=== PATIENT | female | born 1990 | race Caucasian/White ===

== ENCOUNTER 2017-02-17 11:17 | Emergency (ER) | payer OTHER ==
[2017-02-17 11:38] VITALS: BP 134/91; PULSE 72; RESP 18; TEMP 99.2
[2017-02-17] MEDS ORDERED: HYDROcodone/APAP 5-325MG 1 EACH TAB PO STA (12:18)
[2017-02-17] MEDS ORDERED: KETOROLAC 60 MG/2 ML VIAL IM STA (12:18)
--- NOTE | 2017-02-17 12:22 | ED ---
General Adult HPI - General Chief complaint: Back Pain/Injury Stated complaint: hip pain Time Seen by Provider: 02/17/17 12:03 Source: patient, RN notes reviewed Mode of arrival: ambulatory Limitations: no limitations - History of Present Illness Initial comments: Patient is a 26-year-old female presents to the emergency room for reevaluation of right hip pain. Patient states her right hip is bothering her for the past 2 weeks. Patient states the pain increases when she walks or moves. Patient states the pain starts the anterior portion her hip and radiates to the posterior portion of her hip into the right side of her low back. Patient denies recent falls or trauma. Patient denies recent injury to her hip. Patient states when taking 800 mg ibuprofen with no relief of symptoms. Patient states pain has been worsening throughout the past few days. Patient thought she should be evaluated today. Patient denies following up with primary care provider. Patient symptoms or tingling going down her legs. Patient denies saddle anesthesia. Patient denies fecal or urinary incontinence. Patient denies swelling, warmth or tenderness by palpating over the area. - Related Data Previous Rx's Medication Instructions Recorded HYDROcodone/APAP 5-325MG [[place] 1 tab PO Q6HR PRN #12 tab 02/17/17 5-325] Ibuprofen [Motrin] 800 mg PO Q6HR PRN #20 tab 02/17/17 Allergies Allergy/AdvReac Type Severity Reaction Status Date / Time sulfamethoxazole AdvReac Unknown Verified 02/17/17 11:39 [From Bactrim] trimethoprim [From Bactrim] AdvReac Unknown Verified 02/17/17 11:39 Review of Systems ROS Statement: Those systems with pertinent positive or pertinent negative responses have been documented in the HPI. ROS Other: All systems not noted in ROS Statement are negative. Past Medical History Past Medical History: No Reported History History of Any Multi-Drug Resistant Organisms: None Reported Past Surgical History: Section Additional Past Surgical History / Comment(s): PIH Past Psychological History: No Psychological Hx Reported Smoking Status: Never smoker Past Alcohol Use History: Occasional Past Drug Use History: None Reported General Exam - General Exam Comments Initial Comments: Laying in exam room, no acute distress. Limitations: no limitations General appearance: alert, in no apparent distress Head exam: Present: atraumatic, normocephalic, normal inspection Eye exam: Present: normal appearance ENT exam: Present: normal exam Neck exam: Present: normal inspection Respiratory exam: Absent: respiratory distress Right Hip exam: Present: normal inspection, full ROM. Absent: tenderness, swelling Upper Leg exam: Present: normal inspection Knee exam: Present: normal inspection Lower Leg exam: Present: normal inspection Neurovascular tendon exam: Present: no vascular compromise. Absent: pulse deficit (2+ dorsal pedal and posterior tibial pulses), abnormal cap refill ( Capillary refill less than 2 seconds) Back exam: Present: normal inspection Neurological exam: Present: alert, oriented X3, CN II-XII intact, normal gait Psychiatric exam: Present: normal affect, normal mood Skin exam: Present: warm, dry, intact, normal color. Absent: rash Course Vital Signs 02/17/17 11:34 Temperature 99.2 F Pulse Rate 72 Respiratory 18 Rate Blood Pressure 134/91 O2 Sat by Pulse 100 Oximetry Medical Decision Making - Medical Decision Making Patient is a 26-year-old female presents to the emergency room for evaluation of right hip pain. No signs of erythema or warmth at the hip joint. Patient has no pain on palpation. X-ray shows no acute fractures or dislocations. Advised patient to follow-up with primary care provider for further evaluation. Patient was sent home with pain medications. Patient states she understands everything that was discussed with her. Return parameters discussed. Case discussed with Dr. Hendrix. - Radiology Data Radiology results: report reviewed, image reviewed Disposition Clinical Impression: Arthralgia of right hip Disposition: HOME SELF-CARE Condition: Good Instructions: Arthralgia (ED), Hip Pain (ED) Additional Instructions: Take ibuprofen as needed for pain. Take [place] as needed for severe pain. Please follow up with primary care provider for further evaluation. If any new symptom arises or symptoms worsen, return to ER as soon as possible. Prescriptions: HYDROcodone/APAP 5-325MG [[place] 5-325] 1 tab PO Q6HR PRN #12 tab PRN Reason: Pain Ibuprofen [Motrin] 800 mg PO Q6HR PRN #20 tab PRN Reason: Pain Referrals: None,Stated [Primary Care Provider] - 1-2 days Time of Disposition: 12:47
--- NOTE | 2017-02-17 12:36 | XR ---
EXAMINATION TYPE: XR Hip Complete RT DATE OF EXAM: 02/17/2017 12:32 PM COMPARISON: NONE HISTORY: Pain TECHNIQUE: 2 view right hip FINDINGS: Femoral head articulates with the acetabulum. Joint spaces preserved. No acute fractures ar e evident. Soft tissues are normal. IMPRESSION: 1. Normal 2 view right hip
== END 2017-02-17 13:06 | disposition home or self-care (01) ==
LOC: EC 11:17
DX: M25.551 Pain in right hip (principal); Z88.2 Allergy status to sulfonamides
CPT/HCPCS: 99284; 96372; 73502; J1885

== ENCOUNTER 2018-07-10 09:17 | Emergency (ER) | payer OTHER ==
[2018-07-10 09:24] VITALS: TEMP 98.4
[2018-07-10] MEDS ORDERED: KETOROLAC 60 MG/2 ML VIAL IM STA (10:18)
[2018-07-10] MEDS ORDERED: LIDOCAINE 5% PATCH TOPICAL STA (10:18)
--- NOTE | 2018-07-10 10:29 | ED ---
General Adult HPI - General Chief complaint: Back Pain/Injury Stated complaint: BACK PAIN Time Seen by Provider: 07/10/18 10:09 Source: patient, RN notes reviewed Mode of arrival: ambulatory Limitations: no limitations - History of Present Illness Initial comments: Patient's 27-year-old female presented to the emergency room today with a chief complaint of increased lower back pain. Patient does admit that she was moving a dresser 5 days ago. She states that she's had increased lower back pain since. She does admit that there is some radiation into the left buttocks. Patient denies any bowel or bladder contents to touch. Denies any saddle anesthesia. Patient states that she's been trying ibuprofen with some relief the symptoms. Patient states pain is worse with movements. She denies any other complaints. Patient denies any recent fever, chills, shortness of breath, chest pain, abdominal pain, nausea or vomiting, numbness or tingling, dysuria or hematuria, constipation or diarrhea, headaches or visual changes, or any other complaints. - Related Data Previous Rx's Medication Instructions Recorded HYDROcodone/APAP 5-325MG [[place] 1 tab PO Q6HR PRN #12 tab 02/17/17 5-325] Ibuprofen [Motrin] 800 mg PO Q6HR PRN #20 tab 02/17/17 Cyclobenzaprine [Flexeril] 10 mg PO TID #20 tab 07/10/18 Ibuprofen [Motrin] 600 mg PO Q6HR PRN #40 day 07/10/18 Lidocaine [Lidoderm 5% Patch] 1 patch TRANSDERM DAILY #7 patch 07/10/18 Allergies Allergy/AdvReac Type Severity Reaction Status Date / Time sulfamethoxazole AdvReac Unknown Verified 07/10/18 09:21 [From Bactrim] trimethoprim [From Bactrim] AdvReac Unknown Verified 07/10/18 09:21 Review of Systems ROS Statement: Those systems with pertinent positive or pertinent negative responses have been documented in the HPI. ROS Other: All systems not noted in ROS Statement are negative. Past Medical History Past Medical History: No Reported History History of Any Multi-Drug Resistant Organisms: None Reported Past Surgical History: Section Additional Past Surgical History / Comment(s): PIH, oral Past Psychological History: No Psychological Hx Reported Smoking Status: Never smoker Past Alcohol Use History: Occasional Past Drug Use History: None Reported General Exam - General Exam Comments Initial Comments: General: The patient is awake and alert, in no distress, and does not appear acutely ill. Eye: Pupils are equal, round and reactive to light. Extra-ocular movements are intact. No nystagmus. There is normal conjunctiva bilaterally. No signs of icterus. Ears, nose, mouth and throat: There are moist mucous membranes and no oral lesions. Neck: The neck is supple, there is no tenderness or JVD. Musculoskeletal: Normal appearance of the thoracic or lumbar spine. No step- off or deformity. Patient does have paravertebral tenderness on the left side of the lower lumbar. Sensation intact. Strength 5/5. Pulses equal bilaterally 2 +. Neurological: A&O x 3. CN II-XII intact, There are no obvious motor or sensory deficits. Coordination appears grossly intact. Speech is normal. Skin: Skin is warm and dry and no rashes or lesions are noted. Psychiatric: Cooperative, appropriate mood & affect, normal judgment. Limitations: no limitations Course Vital Signs 07/10/18 09:21 Temperature 98.4 F Pulse Rate 85 Respiratory 16 Rate Blood Pressure 149/93 O2 Sat by Pulse 100 Oximetry Medical Decision Making - Medical Decision Making Patient's pain is reproduced on palpation. Worse with movements of bending, turning and twisting. Patient will be treated with anti-inflammatories, Lidoderm patch, muscle relaxer. He is advised follow-up family doctor over the next 2-5 days if symptoms do not improve and return here for any other concerns. Disposition Clinical Impression: Acute low back pain Disposition: HOME SELF-CARE Condition: Good Instructions: Acute Low Back Pain (ED) Additional Instructions: Please use medication as discussed. Please follow-up with family doctor in the next 2 days of symptoms have not improved. Please return to emergency room if the symptoms increase or worsen or for any other concerns. Prescriptions: Cyclobenzaprine [Flexeril] 10 mg PO TID #20 tab Ibuprofen [Motrin] 600 mg PO Q6HR PRN #40 day PRN Reason: Pain Lidocaine [Lidoderm 5% Patch] 1 patch TRANSDERM DAILY #7 patch Is patient prescribed a controlled substance at d/c from ED?: No Referrals: Santino Pires MD [Primary Care Provider] - 1-2 days Time of Disposition: 10:29
[2018-07-10 11:06] VITALS: BP 130/77; PULSE 72; RESP 18
== END 2018-07-10 11:06 | disposition home or self-care (01) ==
LOC: EC 09:17
DX: M54.5 Low back pain (principal); Z88.2 Allergy status to sulfonamides; X50.9XXA Other and unspecified overexertion or strenuous movements or postures, initial encounter; Y93.89 Activity, other specified
CPT/HCPCS: 99283; 96372; J1885

== ENCOUNTER → 2020-01-12 | Outpatient (CLI) | payer BC ==
[2020-01-12 10:21] LABS: HCT 43.5 % (34.0-46.0); HGB 14.1 gm/dL (11.4-16.0); MCH 28.9 pg (25.0-35.0); MCHC 32.5 g/dL (31.0-37.0); MCV 89.1 fL (80.0-100.0); Mean Platelet Volume 9.2; Platelet Count 299 k/uL (150-450); RBC 4.88 m/uL (3.80-5.40); RDW 13.2 % (11.5-15.5); WBC 7.6 k/uL (3.8-10.6)
[2020-01-12 15:38] LABS: African American GFR (CKD) 86.9 (60.0-200.0); Albumin 4.4 g/dL (3.80-4.90); Albumin/Globulin Ratio 1.83 (1.60-3.17); Calcium 9.6 mg/dL (8.7-10.3); Chol/HDL Ratio 2.62; Globulin 2.4 g/dL (1.6-3.3); LDL Cholesterol,Calculated 73.8 mg/dL (0.0-131.0); Total Bilirubin 0.4 mg/dL (0.3-1.2); Total Protein 6.8 g/dL (6.2-8.2); VLDL Calculation 25.2 mg/dL (5.00-40.00)
[2020-01-12 15:45] LABS: Hemoglobin A1C 5.1 % (4.0-6.0)
== END | disposition home or self-care (01) ==
LOC: LABWHC1 09:49
PROVIDERS: ATTEND Family Medicine
DX: Z00.00 Encounter for general adult medical examination without abnormal findings (principal); I10 Essential (primary) hypertension
CPT/HCPCS: 36415; 80053; 80061; 82306; 83036; 84443; 85027